=== PATIENT | female | born 1980 | race Two or more races ===

== ENCOUNTER 2022-10-29 07:06 | Day surgery (SDC) | payer OTHER ==
[~2022-10-29] VITALS: Ht 160 cm; Wt 104.3 kg
[~2022-10-29 07:06] MED LIST: ALDACTONE25 MG PO; ATORVASTATIN CA10 MG PO; CARVEDILOL25 M1 PO; GLUMETZA1000 MG PO; STEGLATRO5 MG PO; SYNTHROID88 MCG PO; TRICOR145 MG PO
== END 2022-10-29 20:15 | disposition home or self-care (01) ==
LOC: CIR.AMB 07:06
PROVIDERS: ATTEND Obstetrics & Gynecology
DX: Z30.2 Encounter for sterilization (principal); Z30.432 Encounter for removal of intrauterine contraceptive device; Z20.822 Contact with and (suspected) exposure to COVID-19; N95.0 Postmenopausal bleeding; E11.9 Type 2 diabetes mellitus without complications; I10 Essential (primary) hypertension; E03.9 Hypothyroidism, unspecified